=== PATIENT | male | born 1985 | race Asian ===

== ENCOUNTER 2017-12-22 10:08 | Emergency (ER) | payer BC ==
--- NOTE | 2017-12-22 10:48 | EDM.PDOC ---
ED HPI GENERAL MEDICAL PROBLEM - General Chief Complaint: ENT Problem Stated Complaint: RT EAR HURTS Time Seen by Provider: 12/22/17 10:42 Source of Information: Reports: Patient - History of Present Illness INITIAL COMMENTS - FREE TEXT/NARRATIVE: HISTORY AND PHYSICAL: History of present illness: [Patient has right ear pain, he was seen by a provider over the last couple of days who has removed some wax from his ear he has right ear pain 5 out of 10 worsen with movement of the auricle he also has serous effusion noted and notice there is some filing of his front teeth consistent with tooth grinding with pressure applied to the TMJ joint there is increase in pain on closing of the jaw and likely most of this year pain comes from TMJ inflammation however he does have pain with movement of the auricle, he was referred to Dr. Martinez appointment tomorrow he is requesting that he see her in the ER today however I do not see any cause for emergent referral No fever nausea vomiting chills sweats no chest pain shortness breath headache dizziness or palpitation no bowel or urine symptoms ] Review of systems: As per history of present illness and below otherwise all systems reviewed and negative. Past medical history: As per history of present illness and as reviewed below otherwise noncontributory. Surgical history: As per history of present illness and as reviewed below otherwise noncontributory. Social history: No reported history of drug or alcohol abuse. Family history: As per history of present illness and as reviewed below otherwise noncontributory. Physical exam: HEENT: Atraumatic, normocephalic, pupils reactive, negative for conjunctival pallor or scleral icterus, mucous membranes moist, throat clear, neck supple, nontender, trachea midline. Bilateral serous effusion right greater than left pain with movement of the right auricle no mastoid tenderness filing of the front teeth and pain over TMJ with jaw movement consistent with TMJ disorder/ syndrome Lungs: Clear to auscultation, breath sounds equal bilaterally, chest nontender. Heart: S1S2, regular, negative for clicks, rubs, or JVD. Abdomen: Soft, nondistended, nontender. Negative for masses or hepatosplenomegaly. Negative for costovertebral tenderness. Pelvis: Stable nontender. Genitourinary: Deferred. Rectal: Deferred. Extremities: Atraumatic, negative for cords or calf pain. Neurovascular unremarkable. Neuro: Awake, alert, oriented. Cranial nerves II through XII unremarkable. Cerebellum unremarkable. Motor and sensory unremarkable throughout. Exam nonfocal. Diagnostics: [Clinical ] Therapeutics: [Cortisporin Otic 4 drops 3 times a day right ear 10 days Mouth block may be obtained at pharmacy Follow-up with Dr. Martinez as scheduled tomorrow ] Impression: [ otitis externa TMJ syndrome ] Definitive disposition and diagnosis as appropriate pending reevaluation and review of above. R ear Pain Score (Numeric/FACES): 8 - Related Data Allergies Allergy/AdvReac Type Severity Reaction Status Date / Time No Known Allergies Allergy Verified 12/22/17 10:33 Home Meds: Home Meds . [No Known Home Meds] 12/22/17 [History] Past Medical History - Past Health History Medical/Surgical History: Denies Medical/Surgical History Social & Family History - Family History Family Medical History: Unobtainable - Tobacco Use Smoking Status *Q: Never Smoker Second Hand Smoke Exposure: No - Caffeine Use Caffeine Use: Reports: Coffee, Soda - Recreational Drug Use Recreational Drug Use: No Course - Vital Signs Last Recorded V/S: Last Vital Signs Temp 97.8 F 12/22/17 10:31 Pulse 109 H 12/22/17 10:31 Resp 16 12/22/17 10:31 BP 135/85 12/22/17 10:31 Pulse Ox 96 12/22/17 10:31 Departure - Departure Time of Disposition: 10:46 Disposition: Home, Self-Care 01 Condition: Good Clinical Impression: Otitis externa, TMJ (temporomandibular joint syndrome) - Discharge Information Referrals: PCP,None [Primary Care Provider] - Additional Instructions: A mouth block may be purchased at most pharmacies for TMJ symptoms Medication as prescribed Follow-up with Dr. Martinez tomorrow as scheduled [facility] [address], [address] [place] [address] my orthopedic The following information is given to patients seen in the emergency department who are being discharged to home. This information is to outline your options for follow-up care. We provide all patients seen in our emergency department with a follow-up referral. The need for follow-up, as well as the timing and circumstances, are variable depending upon the specifics of your emergency department visit. If you don't have a primary care physician on staff, we will provide you with a referral. We always advise you to contact your personal physician following an emergency department visit to inform them of the circumstance of the visit and for follow-up with them and/or the need for any referrals to a consulting specialist. The emergency department will also refer you to a specialist when appropriate. This referral assures that you have the opportunity for follow-up care with a specialist. All of these measure are taken in an effort to provide you with optimal care, which includes your follow-up. Under all circumstances we always encourage you to contact your private physician who remains a resource for coordinating your care. When calling for follow-up care, please make the office aware that this follow-up is from your recent emergency room visit. If for any reason you are refused follow-up, please contact the [facility] emergency department at and asked to speak to the emergency department charge nurse.
== END 2017-12-22 10:55 | disposition home or self-care (01) ==
LOC: MW.ED 10:08
DX: H60.91 Unspecified otitis externa, right ear (principal); M26.629 Arthralgia of temporomandibular joint, unspecified side
CPT/HCPCS: 99282